=== PATIENT | male | born 1955 | race Hispanic/Latino ===

== ENCOUNTER → 2024-08-21 | Day surgery (SDC) | payer MEDICARE ==
[~2024-08-21] MED LIST: ACETAMINOPHEN 1000 MG/100 ML IV PRN; ASPIRIN 325 MG TAB PO SCH; ASPIRIN81 MG PO; ATORVASTATIN CA20 MG PO; CELECOXIB 100 MG CAP PO SCH; DIPHENHYDRAMINE HCL INJ 50 MG/ML VIAL IV PRN; DOCUSATE SODIUM 100 MG CAP PO PRN; EPHEDRINE SULFATE INJ 50 MG/ML VIAL ONE; FAMOTIDINE 20 MG/2 ML VIAL IV ONE; GLYCOPYRROLATE INJ 0.2 MG/ML VIAL ONE; HYDROCODONE/APAP 5MG-325MG TAB PO PRN; HYDROCODONE/APAP 7.5MG-325MG 1 EA TAB PO PRN; HYDROMORPHONE 2MG/ML ONE; KETAMINE 50MG/5ML SYR ONE; LABETALOL HCL 20 ML ONE; ONDANSETRON HCL INJ 2MG/ML 2ML 2 MG/ML VIAL IV PRN; ONDANSETRON HCL INJ 2MG/ML 2ML 2 MG/ML VIAL ONE; PROPOFOL IV EMULSION 10 MG/ML 20 ML VIAL ONE; ROPIVACAINE/EPI/CLONIDINE/KET 50 ML SYRINGE INJ ONE; SODIUM CHLORIDE 0.9% 1000ML 1,000 ML IV SCH; SODIUM CHLORIDE 0.9% INJ 10 ML VIAL ONE; ZESTRIL10 MG PO
[2024-08-21] MEDS: DEXAMETHASONE SOD PHOS 10 MG/1 ML VIAL ONE (05:59)
[2024-08-21] MEDS: GABAPENTIN 300 MG CAP ONE (05:59)
[2024-08-21] MEDS: LACTATED RINGER'S 1,000 ML ONE (05:59)
[2024-08-21] MEDS: CEFAZOLIN SODIUM 2 GM ONE (05:59)
[2024-08-21] MEDS: CELECOXIB 200 MG CAP ONE (05:59)
[2024-08-21 10:40] VITALS: BP 126/74; PULSE 59; RESP 16; O2SAT 95
== END | disposition home health service (06) ==
LOC: OR 05:12
PROVIDERS: ATTEND Specialist
DX: M17.12 Unilateral primary osteoarthritis, left knee (principal); M25.762 Osteophyte, left knee; G89.29 Other chronic pain; I10 Essential (primary) hypertension; E78.5 Hyperlipidemia, unspecified; Z71.3 Dietary counseling and surveillance; Z71.82 Exercise counseling; F17.210 Nicotine dependence, cigarettes, uncomplicated; Z01.812 Encounter for preprocedural laboratory examination; Z79.82 Long term (current) use of aspirin; Z79.899 Other long term (current) drug therapy
CPT/HCPCS: 27447; 73560; 86850; 86900; 97110; 97116; 97161; C1713 ×2; C1776 ×3; J1100; J1170; J2405; J2704; J3490; J7121